=== PATIENT | female | born 1950 | race Caucasian/White ===

== ENCOUNTER → 2017-06-12 | Emergency (ER) | payer OTHER ==
[~2017-06-12] VITALS: Ht 172.7 cm; Wt 63.8 kg
[~2017-06-12] MED LIST: CALC500T19 PO; CLIN1CAP6 PO; FERR325C PO; FISH100020 PO; FISHCAP; GLUCTAB PO; HYDR10SO PO; KETO10 PO; KETOROLAC TROMETHAMINE 60 MG/2 ML (IM) VIAL IM ONE; MAGN500T4 PO; METF500 PO; METF500T4 PO; MULT-207 PO; OMEP20TA PO; TAB-TAB PO; ULTR50TA5 PO; VITA1000 PO; VITA400D PO; ZOFR4TAB3 SL; [UNRECOGNIZED DRUG - CODE] PO; [UNRECOGNIZED DRUG - CODE] TOPICAL
[2017-06-12 18:49] VITALS: BP 194/91; PULSE 73; RESP 16; TEMP 97.9; O2SAT 99
--- NOTE | 2017-06-12 19:42 | PD ---
HPI Chief Complaint: ENT Complaint Time Seen by Provider: 19:08 Travel History International Travel<30 days: No Contact w/Intl Traveler<30days: No Traveled to known affect area: No History of Present Illness HPI 66-year-old female presents emergency department for evaluation of left lacrimal duct pain that radiates over the left cheek to the left ear. Symptom onset 8 hours. The pain is reproducible by pressing the lacrimal duct. Pain is described as sharp. No alleviating factors. Symptoms severity moderate. She denies headache, visual changes, nasal congestion, dental pain. PFSH Past Medical History Cancer: No Cardiovascular Problems: No Diabetes: Yes Patient Takes Glucophage: Yes Diminished Hearing: No Glaucoma: No Hepatitis: No Hiatal Hernia: No Hypertension: No Immune Disorder: No Neurologic: Yes (NEUROPATHY) Psychiatric: No Respiratory: No Thyroid Disease: No Tetanus Vaccination: < 5 Years Influenza Vaccination: No ?: Not Menopausal: Yes Past Surgical History Abdominal Surgery: No AICD: No Cardiac Surgery: No Endocrine Surgery: No Genitourinary Surgery: No Joint Replacement: No Oral Surgery: Yes (tonsils) Pacemaker: No Thoracic Surgery: No Other Surgery: Yes Social History Alcohol Use: Yes (2-3 drinks a week on occ) Tobacco Use: No Substance Use: No Allergies-Medications (Allergen,Severity, Reaction): Coded Allergies: azithromycin (Unverified Allergy, Severe, vomiting and diarrhea, 06/12/17) nortriptyline (Verified Allergy, Severe, heart racing, 06/12/17) penicillin G (Unverified Allergy, Severe, can't remember, 06/12/17) propoxyphene (Unverified Allergy, Severe, vomiting and diarrhea, 06/12/17) gabapentin (Unverified Allergy, Unknown, Tachycardia, 06/12/17) Reported Meds & Prescriptions Reported Meds & Active Scripts Active Ultram (Tramadol HCl) 50 Mg Tab 50 Mg PO Q6H PRN Clindamycin (Clindamycin HCl) 300 Mg Cap 300 Mg PO Q6H 10 Days Reported Retin-A Topical 0.025% (Tretinoin) 0.025 % Cream 1 Applic TOPICAL HS Vitamin D-1000 (Cholecalciferol) 1,000 Unit Tab 2,000 Units PO BID [[id number]] 1 Tab PO BID One Daily (Multiple Vitamin) 1 Tab 1 Tab PO DAILY Omeprazole 20 Mg Tab 20 Mg PO DAILY Iron (Ferrous Sulfate) 325 Mg Cap 325 Mg PO DAILY Fish Oil 1000 mg (Wanda-3 Fatty Acids) 300 Mg-1,000 Mg Cap 1,000 Mg PO DAILY Metformin ER (Metformin HCl) 500 Mg Hudson 750 Mg PO BID With evening meal Review of Systems Except as stated in HPI: all other systems reviewed are Neg General / Constitutional: No: Fever Eyes: No: Visual changes HENT: No: Headaches Cardiovascular: No: Chest Pain or Discomfort Respiratory: No: Shortness of Breath Gastrointestinal: No: Abdominal Pain Genitourinary: No: Dysuria Physical Exam Narrative GENERAL: Alert, well-appearing female in no acute distress. SKIN: Focused skin assessment warm/dry. No facial rash HEAD: Atraumatic. Normocephalic. EYES: Pupils equal and round. No scleral icterus. No injection or drainage. Tenderness to the left lacrimal duct with mild erythema that extends from the inner eye to the lower eyelid. EOMs intact. No fluorescein dye uptake. No dendritic pattern. ENT: No nasal bleeding or discharge. Mucous membranes pink and moist. NECK: Trachea midline. No JVD. No meningismus CARDIOVASCULAR: Regular rate and rhythm. No murmur appreciated. RESPIRATORY: No accessory muscle use. Clear to auscultation. Breath sounds equal bilaterally. GASTROINTESTINAL: Abdomen soft, non-tender, nondistended. Hepatic and splenic margins not palpable. MUSCULOSKELETAL: No obvious deformities. No clubbing. No cyanosis. No edema. NEUROLOGICAL: Awake and alert. No obvious cranial nerve deficits. Motor grossly within normal limits. Normal speech. PSYCHIATRIC: Appropriate mood and affect; insight and judgment normal. Data Data Last Documented VS Vital Signs Date Time Temp Pulse Resp B/P (MAP) Pulse Ox O2 Delivery O2 Flow Rate FiO2 06/12/17 18:49 97.9 73 16 194/91 (125) 99 Orders Orders Ketorolac Inj (Toradol Inj) (06/12/17 19:30) MDM Medical Decision Making Medical Screen Exam Complete: Yes Emergency Medical Condition: Yes Differential Diagnosis Trigeminal neuralgia, herpes zoster, blocked/obstructed tear duct, periorbital cellulitis Narrative Course 66-year-old female presents emergency department for evaluation of left lacrimal duct pain that radiates over the left cheek to the left ear. Symptom onset 8 hours. The pain is reproducible by pressing the lacrimal duct. On exam patient has mild erythema and swelling over the left lacrimal duct and left maxillary sinus. Rendon lamp exam of the left eye reveal no fluorescein dye uptake. The eyes not injected. No dendritic lesion. EOMs intact. Discussed the possibility that this was trigeminal neuralgia but given the patient's pain with mild swelling and erythema at the lacrimal duct the patient will be treated for lacrimal duct infection. Due to patient's ophthalmology showed put on clindamycin and pain medication instructed to follow-up with her PCP/ophthalmology on Thursday. Patient verbalizes understanding and agrees to plan. Diagnosis Primary Impression: Lacrimal duct infection Qualified Codes: H04.302 - Unspecified dacryocystitis of left lacrimal passage Referrals: Programmer Developer Primary Care Physician Additional Instructions: Take the medication as prescribed. Make appointment for follow-up with her doctor on Thursday. If he developed new or worsening symptoms prior return to emergency department. Scripts Tramadol (Ultram) 50 Mg Tab 50 MG PO Q6H Y for PAIN, #12 TAB 0 Refills Prov: Murtaza Reyna MD 06/12/17 Clindamycin (Clindamycin) 300 Mg Cap 300 MG PO Q6H for Infection for 10 Days, CAP 0 Refills Prov: Cindy Lewis 06/12/17 Disposition: 01 DISCHARGE HOME Condition: Stable Cindy Lewis Jun 12, 2017 19:42
== END | disposition home or self-care (01) ==
LOC: PHEFT 18:28
DX: H04.302 Unspecified dacryocystitis of left lacrimal passage (principal); H92.02 Otalgia, left ear; E11.9 Type 2 diabetes mellitus without complications; Z79.84 Long term (current) use of oral hypoglycemic drugs; Z86.69 Personal history of other diseases of the nervous system and sense organs
CPT/HCPCS: 99284; J1885

== ENCOUNTER 2017-06-13 22:39 | Emergency (ER) | payer MEDICARE, OTHER ==
[~2017-06-13] VITALS: Ht 170.2 cm; Wt 63.0 kg
[~2017-06-13 22:39] MED LIST changes: -CALC500T19 PO; -FISHCAP; -GLUCTAB PO; -HYDR10SO PO; -KETO10 PO; -KETOROLAC TROMETHAMINE 60 MG/2 ML (IM) VIAL IM ONE; -MAGN500T4 PO; -METF500 PO; -TAB-TAB PO; -VITA400D PO; -ZOFR4TAB3 SL
[2017-06-13 22:46] VITALS: BP 192/91; PULSE 86; RESP 18; TEMP 98.5; O2SAT 98
--- NOTE | 2017-06-13 23:12 | PD ---
HPI Chief Complaint: Headache Time Seen by Provider: 23:01 Travel History International Travel<30 days: No Contact w/Intl Traveler<30days: No Traveled to known affect area: No History of Present Illness HPI This 66-year-old woman is complaining of pain in the left side of her face and left-sided headache. The pain in her face started yesterday. She came to the hospital for evaluation and was thought to have possible infection of the lacrimal gland. It was noted to be painful and tender to the touch. She was given an injection of Toradol and the Toradol alleviated the pain throughout the night until about 10:00 this afternoon when the pain started again. It is a fairly constant pain on the left side of the nose extending down to the mouth. She says she has been urinating often. She has been nauseated. She says the area of the lacrimal gland was swollen this morning and is actually gone down considerably. She is having a left-sided headache today. She is not generally prone to headaches. She has not noted any numbness or tingling. She has no history of anemia. Recently was found to have some elevation of her liver enzymes and is scheduled for an ultrasound on Thursday. Her primary care physician is Dr. Salty Florence [facility] Past Medical History Cancer: No Cardiovascular Problems: No Diabetes: Yes Diminished Hearing: No Glaucoma: No Hepatitis: No Hiatal Hernia: No Hypertension: No Immune Disorder: No Neurologic: Yes (NEUROPATHY) Psychiatric: No Respiratory: No Thyroid Disease: No ?: Not Menopausal: Yes Past Surgical History Abdominal Surgery: No AICD: No Cardiac Surgery: No Endocrine Surgery: No Genitourinary Surgery: No Joint Replacement: No Oral Surgery: Yes (tonsils) Pacemaker: No Thoracic Surgery: No Other Surgery: Yes Social History Alcohol Use: Yes (2-3 drinks a week on occ) Tobacco Use: No Substance Use: No Allergies-Medications (Allergen,Severity, Reaction): Coded Allergies: azithromycin (Unverified Allergy, Severe, vomiting and diarrhea, 06/12/17) nortriptyline (Verified Allergy, Severe, heart racing, 06/12/17) penicillin G (Unverified Allergy, Severe, can't remember, 06/12/17) propoxyphene (Unverified Allergy, Severe, vomiting and diarrhea, 06/12/17) gabapentin (Unverified Allergy, Unknown, Tachycardia, 06/12/17) Reported Meds & Prescriptions Reported Meds & Active Scripts Active Ultram (Tramadol HCl) 50 Mg Tab 50 Mg PO Q6H PRN Clindamycin (Clindamycin HCl) 300 Mg Cap 300 Mg PO Q6H 10 Days Reported Retin-A Topical 0.025% (Tretinoin) 0.025 % Cream 1 Applic TOPICAL HS Vitamin D-1000 (Cholecalciferol) 1,000 Unit Tab 2,000 Units PO BID [[id number]] 1 Tab PO BID One Daily (Multiple Vitamin) 1 Tab 1 Tab PO DAILY Omeprazole 20 Mg Tab 20 Mg PO DAILY Iron (Ferrous Sulfate) 325 Mg Cap 325 Mg PO DAILY Fish Oil 1000 mg (Marydel-3 Fatty Acids) 300 Mg-1,000 Mg Cap 1,000 Mg PO DAILY Metformin ER (Metformin HCl) 500 Mg Hudson 750 Mg PO BID With evening meal Review of Systems General / Constitutional: No: Fever, Chills Eyes: Positive: Pain, Other (swelling of the lacrimal duct), No: Diploplia, Blurred Vision, Visual changes HENT: Positive: Headaches, No: Vertigo Cardiovascular: No: Chest Pain or Discomfort, Palpitations Respiratory: No: Cough Gastrointestinal: Positive: Nausea Genitourinary: Positive: Frequency, No: Dysuria Skin: No Rash, No Itching Neurologic: No: Weakness, Dizziness Hematologic/Lymphatic: No: Easy Bruising Physical Exam Narrative GENERAL: Well-appearing female who is tenderness at the medial aspect of the left eye. Extraocular movements are full SKIN: Focused skin assessment warm/dry. HEAD: Atraumatic. Normocephalic. EYES: Pupils equal and round. No scleral icterus. No injection or drainage. ENT: No nasal bleeding or discharge. Mucous membranes pink and moist. NECK: Trachea midline. No JVD. CARDIOVASCULAR: Regular rate and rhythm. No murmur appreciated. RESPIRATORY: No accessory muscle use. Clear to auscultation. Breath sounds equal bilaterally. GASTROINTESTINAL: Abdomen soft, non-tender, nondistended. Hepatic and splenic margins not palpable. MUSCULOSKELETAL: No obvious deformities. No clubbing. No cyanosis. No edema. NEUROLOGICAL: Awake and alert. No obvious cranial nerve deficits. Motor grossly within normal limits. Normal speech. PSYCHIATRIC: Appropriate mood and affect; insight and judgment normal. Data Data Last Documented VS Vital Signs Date Time Temp Pulse Resp B/P (MAP) Pulse Ox O2 Delivery O2 Flow Rate FiO2 06/13/17 23:38 88 16 172/77 (108) 99 Room Air 06/13/17 22:46 98.5 Orders Orders Complete Blood Count With Diff (06/13/17 23:01) Comprehensive Metabolic Panel (06/13/17 23:01) Westergren Sedimentation Rate (06/13/17 23:01) Ct Brain W/O Iv Contrast(Rout) (06/13/17 23:01) Sodium Chlor 0.9% 1000 Ml Inj (Ns 1000 M (06/13/17 23:15) Ondansetron Inj (Zofran Inj) (06/13/17 23:15) Ketorolac Inj (Toradol Inj) (06/13/17 23:15) Labs Laboratory Tests Test 06/13/17 23:15 White Blood Count 11.3 TH/MM3 Red Blood Count 4.80 MIL/MM3 Hemoglobin 13.9 GM/DL Hematocrit 43.0 % Mean Corpuscular Volume 89.7 FL Mean Corpuscular Hemoglobin 29.1 PG Mean Corpuscular Hemoglobin Concent 32.5 % Red Cell Distribution Width 13.4 % Platelet Count 303 TH/MM3 Mean Platelet Volume 8.6 FL Neutrophils (%) (Auto) 81.4 % Lymphocytes (%) (Auto) 12.6 % Monocytes (%) (Auto) 4.3 % Eosinophils (%) (Auto) 1.1 % Basophils (%) (Auto) 0.6 % Neutrophils # (Auto) 9.1 TH/MM3 Lymphocytes # (Auto) 1.4 TH/MM3 Monocytes # (Auto) 0.5 TH/MM3 Eosinophils # (Auto) 0.1 TH/MM3 Basophils # (Auto) 0.1 TH/MM3 CBC Comment DIFF FINAL Differential Comment Erythrocyte Sedimentation Rate 5 mm/hr Blood Urea Nitrogen 23 MG/DL Creatinine 0.62 MG/DL Random Glucose 186 MG/DL Total Protein 7.8 GM/DL Albumin 4.1 GM/DL Calcium Level 9.5 MG/DL Alkaline Phosphatase 90 U/L Aspartate Amino Transf (AST/SGOT) 25 U/L Alanine Aminotransferase (ALT/SGPT) 36 U/L Total Bilirubin 0.7 MG/DL Sodium Level 135 MEQ/L Potassium Level 3.7 MEQ/L Chloride Level 101 MEQ/L Carbon Dioxide Level 23.7 MEQ/L Anion Gap 10 MEQ/L Estimat Glomerular Filtration Rate 96 ML/MIN [facility] Medical Decision Making Medical Screen Exam Complete: Yes Emergency Medical Condition: Yes Medical Record Reviewed: Yes Differential Diagnosis Differential includes lacrimal gland infection, possible adverse medication reaction to Ultram, headache Narrative Course CT scan of the brain is negative. White count is 11,000. Sedimentation rate is normal. I suspect the nausea may be related to Ultram. I recommend that she take Toradol instead for pain and I will prescribe some Zofran Diagnosis Primary Impression: Lacrimal duct infection Qualified Codes: H04.302 - Unspecified dacryocystitis of left lacrimal passage Scripts Ondansetron Odt (Zofran Odt) 4 Mg Tab 4 MG SL Q6HR Y for Nausea/Vomiting, #10 TAB 0 Refills Prov: Murtaza Reyna MD 06/14/17 Ketorolac (Ketorolac) 10 Mg Tab 10 MG PO Q6HR Y for PAIN for 20 Days, TAB 0 Refills Prov: Murtaza Reyna MD 06/14/17 Disposition: 01 DISCHARGE HOME Condition: Stable Murtaza Reyna MD Jun 13, 2017 23:12
[2017-06-13] MEDS ORDERED: KETOROLAC TROMETHAMINE 30 MG/ML (IVP) VIAL IV PUSH ONE (23:15)
[2017-06-13] MEDS ORDERED: ONDANSETRON HCL 4 MG/2 ML VIAL IV PUSH ONE (23:15)
[2017-06-13] MEDS ORDERED: SODIUM CHLOR 0.9% 1000 ML INJ 1,000 ML IV SCH (23:15)
[2017-06-13 23:28] LABS: AUTOMATED NEUTROPHIL # 9.1 TH/MM3 (1.8-7.7); BASOPHIL # 0.1 TH/MM3 (0-0.2); BASOPHIL % 0.6 % (0.0-2.0); EOSINOPHIL # 0.1 TH/MM3 (0-0.4); EOSINOPHIL % 1.1 % (0.0-4.0); LYMPH % 12.6 % (9.0-44.0); LYMPHOCYTE # 1.4 TH/MM3 (1.0-4.8); MEAN CELL VOLUME 89.7 FL (80.0-100.0); MEAN CORPUSCULAR HEMOGLOBIN 29.1 PG (27.0-34.0); MEAN CORPUSCULAR HGB CONC 32.5 % (32.0-36.0); MONO % 4.3 % (0.0-8.0); NEUT % 81.4 % (16.0-70.0); PLATELET COUNT 303 TH/MM3 (150-450); RED CELL DISTRIBUTION WIDTH 13.4 % (11.6-17.2); WHITE BLOOD COUNT 11.3 TH/MM3 (4.0-11.0)
[2017-06-13 23:29] LABS: HEMO FLAGS DIFF FINAL
[2017-06-13 23:36] LABS: CHLORIDE 101 MEQ/L (98-107); POTASSIUM 3.7 MEQ/L (3.5-5.1); SODIUM (NA) 135 MEQ/L (136-145)
[2017-06-13 23:38] VITALS: BP 172/77; PULSE 88; RESP 16; O2SAT 99
[2017-06-13 23:40] LABS: ANION GAP 10 MEQ/L (5-15); BICARBONATE 23.7 MEQ/L (21.0-32.0); BLOOD UREA NITROGEN 23 MG/DL (7-18)
[2017-06-13 23:43] LABS: ALT (GPT) 36 U/L (10-53); AST (GOT) 25 U/L (15-37); GLOMERULAR FILTRATION RATE 96 ML/MIN (>89)
[2017-06-13 23:45] LABS: TOTAL BILIRUBIN ADULT 0.7 MG/DL (0.2-1.0)
[2017-06-13 23:46] LABS: ALKALINE PHOSPHATASE 90 U/L (45-117)
--- NOTE | 2017-06-13 23:53 | RADRPT ---
EXAM DATE/TIME: 06/13/2017 23:26 [place] COMPARISON: No previous studies available for comparison. INDICATIONS : Headache and left sided facial pain with nausea RADIATION DOSE: 58.01 CTDIvol (mGy) MEDICAL HISTORY : Diabetes mellitus type 2. SURGICAL HISTORY : Tonsillectomy. ENCOUNTER: Initial ACUITY: 1 day PAIN SCALE: 7/10 LOCATION: Left cranial behind eye and forehead TECHNIQUE: Multiple contiguous axial images were obtained of the head. Using automated exposure control and adj ustment of the mA and/or kV according to patient size, radiation dose was kept as low as reasonably a chievable to obtain optimal diagnostic quality images. DICOM format image data is available electro nically for review and comparison. FINDINGS: CEREBRUM: The ventricles are normal for age. No evidence of midline shift, mass lesion, hemorrhage or acute in farction. No extra-axial fluid collections are seen. POSTERIOR FOSSA: The cerebellum and brainstem are intact. The 4th ventricle is midline. The cerebellopontine angle i s unremarkable. EXTRACRANIAL: The visualized portion of the orbits is intact. SKULL: The calvaria is intact. No evidence of skull fracture. CONCLUSION: 1. No acute findings. Reji Rucker MD on June 13, 2017 at 23:47 Board Certified Radiologist. This report was verified electronically.
[2017-06-14] MEDS ORDERED: ZOFR4TAB3 SL (00:02)
[2017-06-14] MEDS ORDERED: KETO10 PO (00:02)
[2017-06-14 00:32] VITALS: BP 165/62
== END 2017-06-14 00:36 | disposition home or self-care (01) ==
LOC: PHED 22:39
DX: H04.302 Unspecified dacryocystitis of left lacrimal passage (principal); R35.0 Frequency of micturition; R11.0 Nausea; E11.9 Type 2 diabetes mellitus without complications; Z79.84 Long term (current) use of oral hypoglycemic drugs; Z86.69 Personal history of other diseases of the nervous system and sense organs
CPT/HCPCS: 70450; 80053; 85025; 85652; 96361; 96374; 96375; 99285; J1885; J2405; J7030

== ENCOUNTER 2018-08-05 05:37 | Inpatient (IN) ==
[2018-08-05] MEDS ORDERED: Chlorhexidine Gluconate 2% 1 Pack (2 Cloths) TOPICAL ONE (06:49)
[2018-08-05] MEDS ORDERED: Metoprolol Tartrate 25 MG Tablet PO ONE (06:49)
[2018-08-05] MEDS ORDERED: Bupivacaine/Epinephrine 0.5% Inj 50 ML Vial ONE (06:54)
[2018-08-05] MEDS ORDERED: Thrombin Topical Soln 5,000 UNIT Vial TOPICAL ONE (06:56)
[2018-08-05] MEDS ORDERED: Gelatin Size 100 Topical Foam ONE (06:56)
[2018-08-05] MEDS ORDERED: Vancomycin Inj 1,000 MG in Sodium Chlor 0.9% Inj 250 ML IV.SIG SCH (07:00)
[2018-08-05] MEDS ORDERED: Sodium Chlor 0.9% Inj 500 ML IV.SIG SCH (07:00)
[2018-08-05] MEDS: Sod Chloride 0.9% Inj 1,000 ML IV.SIG SCH (07:15)
[2018-08-05] MEDS ORDERED: Neostigmine Inj 5 MG/5 ML Syringe IV.PUSH ONE (08:35)
[2018-08-05] MEDS ORDERED: Lidocaine PF 1% Inj 5 ML Syringe OTHER ONE (08:35)
[2018-08-05] MEDS ORDERED: Glycopyrrolate Inj 1 MG/5 ML Syringe IV.PUSH ONE (08:35)
[2018-08-05] MEDS ORDERED: Phenylephrine/NS 1000 MCG/10ML Syringe IV.PUSH ONE (08:35)
[2018-08-05] MEDS ORDERED: Sod Chloride 0.9% Inj 1,000 ML IV.CONT ONE (08:35)
[2018-08-05] MEDS ORDERED: Dextrose 50% in Water 50 ML Vial IV.PUSH PRN (12:07)
[2018-08-05] MEDS ORDERED: Aluminum/Magnesium/Simethacone Susp 30 ML UDC PO PRN (12:08)
[2018-08-05] MEDS ORDERED: Potassium Chlor 20 mEq Premix 20 MEQ/100 ML PIGGYBACK IV.SIG PRN (12:08)
[2018-08-05] MEDS ORDERED: Magnesium Sulfate Inj 2 GM in Sodium Chlor 0.9% Inj 96 ML IV.SIG PRN (12:08)
[2018-08-05] MEDS ORDERED: Calcium Gluconate Inj 1 GM in Sodium Chlor 0.9% Inj 100 ML IV.SIG PRN (12:08)
[2018-08-05] MEDS ORDERED: Menthol 5.8 MG Lozenge BUCCAL PRN (12:08)
[2018-08-05] MEDS ORDERED: Acetaminophen 325 MG Tablet PO PRN (12:08)
[2018-08-05] MEDS ORDERED: Bisacodyl 10 MG Supp RECTAL PRN (12:08)
--- NOTE | 2018-08-05 12:17 | P.OP ---
- Preoperative Diagnosis (1) Chronic low back pain with bilateral sciatica (2) Lumbar stenosis with neurogenic claudication (3) Lumbar degenerative disc disease (4) Lumbar facet arthropathy (5) Spondylolisthesis, lumbar region Date of procedure: 08/05/18 Procedure: Lumbar L2-3 transforaminal interbody fusion; L2 and L3 decompressive laminectomy ; L2-3 pedicle screw fixation; L2-3 interbody cage placement; microsurgical technique Anesthesia: GETA Surgeon: Shamar Grant MD Typewriter Tester: Tessy Trujillo Estimated blood loss (mL): 50 Operation and Findings: The [id number] details of the procedure, indications, alternatives, risks and potential complications were fully discussed with the patient. The patient fully understood. All the questions were answered. No guarantees were given. The patient voiced requesting the procedure and provided informed consents. The patient was offered the alternative of delaying the procedure and continuing with nonsurgical management. Prior to the procedure, the surgical incision was marked in the preoperative surgical holding room, and the procedure, risks, and potential complications revisited with the patient. Placement of electrodes for intraoperative neurophysiological monitoring was completed. The patient was taken to the operative room, and following induction of general anesthesia, endotracheal intubation was performed. A Kessler catheter, bilateral REBEKAH hose and sequential compression devices were placed and kept throughout the procedure. The patient was positioned prone, over a Rajeev table over a Kraig frame. All pressure in the preoperative surgical holding room points were carefully padded. The eyes were tapped shut after ointment was applied by the anesthesiologist to prevent corneal abrasion. A Carin hugger was placed over the exposed lower body to maintain control of the core body temperature. The lumbar region was prepped and draped in the usual sterile fashion. Once the patient was positioned, a localizing cross-table lateral x-ray was performed with a C-arm. A left paramedian incision was outlined on the skin approximately 3cm from the midline. The skin incision made with a #10 blade. Small bleeders were controlled with the cautery. The dissection was then carried out into deeper planes and through the thoracolumbar fascia with a Bovie. The intermuscular septum was identified and the mucles were blunted dissected along the septum. The facets and transverse process at the left L2-3 levels were exposed and the proper anatomical landmarks were identified. A microsurgical self-retaining retractor was placed on the incision, and a localizing lateralizing cross-table x-ray was performed. Intraoperative microscope magnification used for further dissection. There was significant facet and ligamentum flavum hypertrophy noted. The left L2-3 facet was resected with a drill bit along with the lamina and there was severe foraminal and lateral recess/spinal stenosis from hypertrophied ligamentum flavum and facet which was decompressed. There was disc height collapse from the degeneration along with degenerative spondylolisthesis and disc protrusion also leading to the foraminal stenosis. Epidural hemostasis was achieved with bipolar cautery and Gelfoam with thrombin. Subsequently entered into the disc space at the L2-3 level with a #15 blade and nestor were used for discectomy. I then placed PEEK cage packed with local autograft bone and more local autograft bone was packed adjacent to the cage in interspace for added interbody fusion. With placement of the cage, I was able to distract the interspace and opened up the foramen further bilaterally. Subsequently in order to facilitate the fusion and provide stabilization, pedicle screw fixation was undertaken using [place] spine screws on entry point at the left L2 and L3 levels at the junction of the transverse process and facet through the pedicles into the body. Subsequently using AP and lateral fluoroscopy tap and screw placement. The screws were then connected with a yanet and locked in place with caps. The construct appeared very secure at this point. The area was then copiously irrigated with Vancomycin solution and powder. The retractors were removed and the bipolar cautery used for hemostasis. The muscle fascia was then approximated using 2-0 Vicryl interrupted stitches and then 3-0 Vicryl subcuticular stitches also placed in interrupted fashion. The final skin closure was completed with Mastisol and Steri-Strips. A sterile dressing was then applied. The patient then turned in supine position, extubated and taken to recovery room. There were no intraoperative complications. All sponge and needle counts were correct at the end of procedure. Estimated blood loss about 50 ml.
--- NOTE | 2018-08-05 12:19 | XR ---
EXAM DATE: 08/05/2018 12:09 PM EDT AGE/SEX: 68 years / Female INDICATIONS: Post-op L2-L3 posterior lumbar fusion. CLINICAL DATA: This is the patient's initial encounter. Patient reports that signs and symptoms have been present for 1 day and indicates a pain score of Nonresponsive. MEDICAL/SURGICAL HISTORY: Non-responsive. Non-responsive. COMPARISON: [facility], MR LUMBAR SPINE W/O CONTRAST, 04/15/2018. . FINDINGS: Intraoperative OEC spot images of the lumbar spine targeted to the L2-3 level show unilateral, left-s ided transpedicular fixation with intervertebral disc prostheses. On the prior MRI, severe spinal david nosis was seen at this level due to diffuse disc bulge, marginal spurring and posterior element hyper trophy. CONCLUSION: Left-sided unilateral transpedicular fixation at L2-3 with intervertebral disc prostheses. Electronically signed by: Jose Carmona MD 08/05/2018 12:17 PM EDT
[2018-08-05] MEDS ORDERED: fentaNYL Citrate Inj 100 MCG/2 ML Ampul ONE ×2 (12:22)
[2018-08-05] MEDS: Morphine Inj 4 MG/ML Vial IV.PUSH PRN ×2 (15:32→20:09)
[2018-08-05 16:34] LABS: Baso % (Auto) 0.3 % (0.0-2.0); Eos % (Auto) 0.1 % (0.0-4.0); Hematocrit 36.8 % (35.0-46.0); Hemoglobin 13.2 gm/dL (11.6-15.3); Lymph # (Auto) 0.6 th/mm3 (1.0-4.8); Lymph % (Auto) 6.9 % (9.0-44.0); Mean Corpuscular HGB Conc 35.9 % (32.0-36.0); Mean Corpuscular Hemoglobin 32.6 pg (27.0-34.0); Mean Corpuscular Volume 90.7 fL (80.0-100.0); Mean Platelet Volume 9.2 fL (7.0-11.0); Mono # (Auto) 0.3 th/mm3 (0.0-0.9); Mono % (Auto) 2.7 % (0.0-8.0); Neut # (Auto) 8.3 th/mm3 (1.8-7.7); Platelet Count 208 th/mm3 (150-450); Red Blood Count 4.06 mil/mm3 (4.00-5.30); Red Cell Distribution Width 12.8 % (11.6-17.2); White Blood Count 9.2 th/mm3 (4.0-11.0)
[2018-08-05 16:52] LABS: Anion Gap 11 meq/L (5-15); Blood Urea Nitrogen 21 mg/dL (7-18); Calcium 8.6 mg/dL (8.5-10.1); Carbon Dioxide 23.8 meq/L (21.0-32.0); Chloride 104 meq/L (98-107); Glomerular Filtration Rate Greater Than 89 mL/min (>89); Glucose,Random 146 mg/dL (74-106); Magnesium 1.9 mg/dL (1.5-2.5); Potassium 3.9 meq/L (3.5-5.1); Sodium 139 meq/L (136-145)
[2018-08-05] MEDS: Insulin NovoLOG Aspart Correctional Sugar Inj SQ SCH ×2 (17:31→20:08)
[2018-08-05] MEDS: Senna/Docusate Sodium 8.6/50 MG Tablet PO SCH (20:08)
[2018-08-05] MEDS ORDERED: Zolpidem Tartrate 5 MG Tablet PO PRN (21:00)
[2018-08-05] MEDS ORDERED: TURMERIC 600 MG PO SCH (21:00)
[2018-08-05] MEDS: Vancomycin Inj 1,000 MG in Sodium Chlor 0.9% Inj 250 ML IV.SIG SCH (23:41)
[2018-08-06] MEDS: Sod Chloride 0.9% Inj 1,000 ML IV.SIG SCH (06:59)
[2018-08-06] MEDS: Senna/Docusate Sodium 8.6/50 MG Tablet PO SCH ×2 (08:35→20:06)
[2018-08-06] MEDS: Magnesium Oxide 400 MG Tablet PO SCH (08:35)
[2018-08-06] MEDS: Vancomycin Inj 1,000 MG in Sodium Chlor 0.9% Inj 250 ML IV.SIG SCH (08:35)
[2018-08-06] MEDS: Insulin NovoLOG Aspart Correctional Sugar Inj SQ SCH ×4 (08:50→20:07)
--- NOTE | 2018-08-06 11:03 | P.PNNS ---
Subjective Interval history: Pt s/p lumbar L2-3 transforaminal interbody fusion; L2 and L3 decompressive laminectomy; L2-3 pedicle screw fixation; L2-3 interbody cage placement; microsurgical technique on 08/05/18. Pt states pain controlled with current pain medication regimen. No radiculopathy in LEs. Paresthesias improved. <Fantasma Zimmerman - Last Filed: 08/06/18 10:56> Physical Exam Vital signs: Vital Signs 08/05/18 12:11 08/05/18 12:30 08/05/18 12:45 Temperature 98 F Pulse Rate 74 74 76 Respiratory Rate 18 18 18 Blood Pressure 111/53 L 127/84 124/74 Pulse Oximetry 95 95 95 08/05/18 13:00 08/05/18 13:15 08/05/18 13:30 Temperature Pulse Rate 70 70 70 Respiratory Rate 18 18 18 Blood Pressure 126/63 113/59 L 111/56 L Pulse Oximetry 95 95 95 08/05/18 13:45 08/05/18 14:10 08/05/18 15:59 Temperature 98 F 98.5 F Pulse Rate 70 71 74 Respiratory Rate 18 18 18 Blood Pressure 111/56 L 117/58 L 133/64 Pulse Oximetry 95 95 98 08/05/18 19:30 08/06/18 00:00 08/06/18 00:11 Temperature 98.6 F Pulse Rate 73 Respiratory Rate 18 20 18 Blood Pressure 133/61 Pulse Oximetry 98 08/06/18 02:00 08/06/18 04:00 08/06/18 08:00 Temperature 98.6 F 98.7 F Pulse Rate 76 71 Respiratory Rate 18 20 16 Blood Pressure 96/50 L 91/51 L Pulse Oximetry 96 95 Intake & Output 08/05/18 08/06/18 08/06/18 18:59 06:59 18:59 Intake Total 1979 / 1979 490 / 490 250 / 250 Output Total 200 / 200 2300 / 2300 Balance 1780 / 1780 -1810 / -1810 250 / 250 Weight 58 kg 58.2 kg Intake: IV 250 / 250 250 / 250 Vancomycin Inj 1,000 MG In NS 250 / 250 250 / 250 Inj 250 ML @ 250 mls/hr IV.SIG Q12H [facility] Rx#:[id number] Oral 480 / 480 240 / 240 Anesthesia Amount 1500 / 1500 Output: Urine 2300 / 2300 Estimated Blood Loss 50 / 50 Urine Amount (Catheter) 150 / 150 Indwelling Urethral Catheter 150 / 150 Other: Date of Last Bowel Movement 08/05/18 - Constitutional no acute distress - Routine HEENT Exam Head: Present: normocephalic Eye: Present: PERRL, conjunctival icterus - Routine Respiratory Exam Present: CTA bilaterally. Absent: respiratory distress, rhonchi, wheezes - Routine Cardiovascular Exam Present: RRR, S1, S2. Absent: murmur - Routine Abdominal Exam Present: soft - Routine Skin Exam Absent: cyanosis, erythema Comments: RN changed bandage this morning and reportedly clean and dry. - Routine Neurological Exam Present: alert, moving all extremities, normal speech. Absent: sensory deficit , motor deficit - Routine Psychiatric Exam Present: normal affect. Absent: anxious, agitated - Urinary Catheter Management Indwelling Urethral Catheter Cath placed during this visit: no Reason for continuing: Hourly intake/output <Fantasma Zimmerman - Last Filed: 08/06/18 10:56> Vital signs: Vital Signs 08/05/18 12:45 08/05/18 13:00 08/05/18 13:15 Temperature Pulse Rate 76 70 70 Respiratory Rate 18 18 18 Blood Pressure 124/74 126/63 113/59 L Pulse Oximetry 95 95 95 08/05/18 13:30 08/05/18 13:45 08/05/18 14:10 Temperature 98 F Pulse Rate 70 70 71 Respiratory Rate 18 18 18 Blood Pressure 111/56 L 111/56 L 117/58 L Pulse Oximetry 95 95 95 08/05/18 15:59 08/05/18 19:30 08/06/18 00:00 Temperature 98.5 F 98.6 F Pulse Rate 74 73 Respiratory Rate 18 18 20 Blood Pressure 133/64 133/61 Pulse Oximetry 98 98 08/06/18 00:11 08/06/18 02:00 08/06/18 04:00 Temperature 98.6 F Pulse Rate 76 Respiratory Rate 18 18 20 Blood Pressure 96/50 L Pulse Oximetry 96 08/06/18 08:00 08/06/18 12:00 Temperature 98.7 F 98.0 F Pulse Rate 71 76 Respiratory Rate 16 16 Blood Pressure 91/51 L 105/58 L Pulse Oximetry 95 96 Intake & Output 10/08/06/18 08/06/18 18:59 06:59 18:59 Intake Total 1979 / 1979 490 / 490 250 / 250 Output Total 200 / 200 2300 / 2300 Balance 1780 / 1780 -1810 / -1810 250 / 250 Weight 58 kg 58.2 kg Intake: IV 250 / 250 250 / 250 Vancomycin Inj 1,000 MG In NS 250 / 250 250 / 250 Inj 250 ML @ 250 mls/hr IV.SIG Q12H [facility] Rx#:[id number] Oral 480 / 480 240 / 240 Anesthesia Amount 1500 / 1500 Output: Urine 2300 / 2300 Estimated Blood Loss 50 / 50 Urine Amount (Catheter) 150 / 150 Indwelling Urethral Catheter 150 / 150 Other: Date of Last Bowel Movement 08/05/18 - Urinary Catheter Management Indwelling Urethral Catheter Cath placed during this visit: no <Shamar Grant - Last Filed: 08/06/18 12:34> Assessment and Plan - Assessment (1) Chronic low back pain with bilateral sciatica Code(s): M54.41 - Lumbago with sciatica, right side; M54.42 - Lumbago with sciatica, left side; G89.29 - Other chronic pain Status: Chronic (2) Lumbar stenosis with neurogenic claudication Code(s): M48.062 - Spinal stenosis, lumbar region with neurogenic claudication Status: Chronic (3) Lumbar degenerative disc disease Code(s): M51.36 - Other intervertebral disc degeneration, lumbar region Status : Chronic (4) Lumbar facet arthropathy Code(s): M47.816 - Spondylosis without myelopathy or radiculopathy, lumbar region Status: Chronic (5) Spondylolisthesis, lumbar region Code(s): M43.16 - Spondylolisthesis, lumbar region Status: Chronic - Plan A: 68 y/o FM s/p Lumbar L2-3 transforaminal interbody fusion; L2 and L3 decompressive laminectomy; L2-3 pedicle screw fixation; L2-3 interbody cage placement; microsurgical technique P: Continue with pain control. PT to advance activity. Follow up as directed on preop instruction sheet. <Fantasma Zimmerman - Last Filed: 08/06/18 10:56> - Attending Attestation The exam, history, and the medical decision-making described in the above note were completed with the assistance of the mid-level provider. I reviewed and agree with the findings presented. I attest that I had a [id number] encounter with the patient on the same day, and personally performed and documented my assessment and findings in the medical record. <Shamar Grant - Last Filed: 08/06/18 12:34>
[2018-08-07] MEDS: Insulin NovoLOG Aspart Correctional Sugar Inj SQ SCH ×4 (08:11→20:50)
[2018-08-07] MEDS: Senna/Docusate Sodium 8.6/50 MG Tablet PO SCH ×2 (08:14→20:49)
[2018-08-07] MEDS: Magnesium Oxide 400 MG Tablet PO SCH (08:14)
--- NOTE | 2018-08-07 13:10 | P.PNNS ---
Subjective Interval history: Painful when she gets up, but ok in bed. Nauseous due to pain and narcotics NO BM yet Physical Exam Vital signs: Vital Signs 08/06/18 16:00 08/06/18 20:00 08/06/18 23:16 Temperature 98.1 F 98.8 F Pulse Rate 65 72 Respiratory Rate 18 18 18 Blood Pressure 118/57 L 134/62 Pulse Oximetry 94 L 95 08/07/18 00:00 08/07/18 08:00 Temperature 99.6 F 98.3 F Pulse Rate 83 75 Respiratory Rate 17 16 Blood Pressure 107/55 L 110/58 L Pulse Oximetry 96 95 Intake & Output 08/06/18 08/07/18 08/07/18 18:59 06:59 18:59 Intake Total 730 / 730 1000 / 1000 Balance 730 / 730 1000 / 1000 Intake: IV 250 / 250 1000 / 1000 Vancomycin Inj 1,000 MG In NS 250 / 250 Inj 250 ML @ 250 mls/hr IV.SIG Q12H [facility] Rx#:[id number] Oral 480 / 480 Other: # Voids 1 5 Date of Last Bowel Movement 08/05/18 08/05/18 08/05/18 Narrative: A&O x 3 CN II - XII intact Motor 5/5 UE/LE - Urinary Catheter Management Indwelling Urethral Catheter Cath placed during this visit: no Reason for continuing: Hourly intake/output Assessment and Plan - Plan A: 68 y/o FM s/p Lumbar L2-3 transforaminal interbody fusion; L2 and L3 decompressive laminectomy; L2-3 pedicle screw fixation; L2-3 interbody cage placement; microsurgical technique, pod#2 P: Continue with pain control and attempt at BM Try flexeril today Mobilize with PT Will need a walker and home health care on d/c
[2018-08-08] MEDS: Insulin NovoLOG Aspart Correctional Sugar Inj SQ SCH ×4 (08:42→21:13)
[2018-08-08] MEDS: Senna/Docusate Sodium 8.6/50 MG Tablet PO SCH ×2 (08:44→21:08)
[2018-08-08] MEDS: Magnesium Oxide 400 MG Tablet PO SCH (08:44)
--- NOTE | 2018-08-08 12:51 | P.DCO ---
- Physical Therapy Order: Evaluate and treat, Improve ambulation, Strength and gait training - Home Health Nursing Order: Wound care and dressing changes - Case Management Consult Yes - Certification I have seen patient Kim Flores on 08/08/18. My clinical findings support the need for the requested home health care services because: Limited ability to care for self I certify that my clinical findings support that this patient is homebound because: Unsteady gait/balance
--- NOTE | 2018-08-08 14:43 | P.PNNS ---
Subjective Interval history: Doing better with flexeril. Still no BM, will try suppository today -- this distention is making her uncomfortable. Physical Exam Vital signs: Vital Signs 08/07/18 16:00 08/07/18 20:00 08/08/18 00:00 Temperature 98.6 F 98.7 F 98.7 F Pulse Rate 69 75 73 Respiratory Rate 16 17 17 Blood Pressure 127/63 143/63 H 112/59 L Pulse Oximetry 96 98 96 08/08/18 04:00 08/08/18 08:00 08/08/18 12:00 Temperature 98.0 F 98.1 F 97.9 F Pulse Rate 74 71 81 Respiratory Rate 17 16 16 Blood Pressure 112/58 L 112/57 L 113/60 Pulse Oximetry 96 94 L 96 Intake & Output 08/07/18 08/08/18 08/08/18 18:59 06:59 18:59 Intake Total 1979 / 1979 Output Total 2350 / 2350 Balance -370 / -370 Weight 65.4 kg Intake: Oral 480 / 480 Anesthesia Amount 1500 / 1500 Output: Urine 2300 / 2300 Estimated Blood Loss 50 / 50 Other: # Voids 5 4 Date of Last Bowel Movement 08/05/18 08/05/18 08/05/18 Narrative: A&O x 3 CN II - XII intact Motor 5/5 UE/LE Incision c/d/i - Urinary Catheter Management Indwelling Urethral Catheter Cath placed during this visit: no Reason for continuing: Hourly intake/output Assessment and Plan - Plan A: 68 y/o FM s/p Lumbar L2-3 transforaminal interbody fusion; L2 and L3 decompressive laminectomy; L2-3 pedicle screw fixation; L2-3 interbody cage placement; microsurgical technique, pod#2 P: Continue with pain control and attempt at BM Try flexeril today Mobilize with PT Will need a walker and home health care on d/c, likely tomorrow
[2018-08-09] MEDS: Insulin NovoLOG Aspart Correctional Sugar Inj SQ SCH ×4 (08:00→23:59)
[2018-08-09] MEDS: Senna/Docusate Sodium 8.6/50 MG Tablet PO SCH ×2 (08:54→23:58)
[2018-08-09] MEDS: Magnesium Oxide 400 MG Tablet PO SCH (09:00)
--- NOTE | 2018-08-09 11:38 | P.PNNS ---
Subjective Interval history: Pt awake and alert. Mild incisional pain states controlled with one pain pill and trying to not use as frequent as ordered. She denies any radiculopathy in LEs. She has numbness in feet but tingling has resolved. Pt ambulating. She is constipated and has taken multiple oral laxatives. She has had one suppository. <Fantasma Zimmerman - Last Filed: 08/09/18 18:18> Physical Exam Vital signs: Vital Signs 08/08/18 12:00 08/08/18 16:00 08/08/18 20:00 Temperature 97.9 F 97.7 F 98.2 F Pulse Rate 81 69 79 Respiratory Rate 16 16 18 Blood Pressure 113/60 131/63 114/59 L Pulse Oximetry 96 98 96 08/09/18 00:00 08/09/18 04:00 08/09/18 08:00 Temperature 98.7 F 98.4 F 98.4 F Pulse Rate 69 73 72 Respiratory Rate 17 17 18 Blood Pressure 114/55 L 118/56 L 110/58 L Pulse Oximetry 96 96 95 Intake & Output 08/08/18 08/09/18 08/09/18 18:59 06:59 18:59 Intake Total 3460 / 3460 Output Total 2350 / 2350 Balance 1110 / 1110 Intake: Oral 1960 / 1960 Anesthesia Amount 1500 / 1500 Output: Urine 2300 / 2300 Estimated Blood Loss 50 / 50 Other: # Voids 3 5 Date of Last Bowel Movement 08/05/18 08/08/18 08/08/18 - Constitutional no acute distress, thin - Routine HEENT Exam Head: Present: normocephalic Eye: Present: PERRL - Routine Respiratory Exam Present: CTA bilaterally. Absent: respiratory distress, rhonchi, wheezes - Routine Cardiovascular Exam Present: RRR, S1, S2. Absent: murmur - Routine Abdominal Exam Present: distended. Absent: normoactive bowel sounds (diminished.), firm (Not firm but distended.) - Routine Skin Exam Absent: cyanosis, erythema - Routine Neurological Exam Present: alert, oriented X3, moving all extremities, normal speech. Absent: motor deficit - Routine Psychiatric Exam Present: normal affect, cooperative. Absent: anxious, agitated - Urinary Catheter Management Indwelling Urethral Catheter Cath placed during this visit: no Reason for continuing: Hourly intake/output <Fantasma Zimmerman - Last Filed: 08/09/18 18:18> Vital signs: Vital Signs 08/08/18 20:00 08/09/18 00:00 08/09/18 04:00 Temperature 98.2 F 98.7 F 98.4 F Pulse Rate 79 69 73 Respiratory Rate 18 17 17 Blood Pressure 114/59 L 114/55 L 118/56 L Pulse Oximetry 96 96 96 08/09/18 08:00 08/09/18 12:00 08/09/18 16:00 Temperature 98.4 F 97.7 F 98.0 F Pulse Rate 72 81 78 Respiratory Rate 18 17 18 Blood Pressure 110/58 L 122/70 138/87 Pulse Oximetry 95 95 97 Intake & Output 08/08/18 08/09/18 08/09/18 18:59 06:59 18:59 Intake Total 3460 / 3460 Output Total 2350 / 2350 Balance 1110 / 1110 Intake: Oral 1960 / 1960 Anesthesia Amount 1500 / 1500 Output: Urine 2300 / 2300 Estimated Blood Loss 50 / 50 Other: # Voids 3 5 Date of Last Bowel Movement 08/05/18 08/08/18 08/08/18 - Urinary Catheter Management Indwelling Urethral Catheter Cath placed during this visit: no <Shamar Grant - Last Filed: 08/09/18 18:28> Assessment and Plan - Assessment (1) Chronic low back pain with bilateral sciatica Code(s): M54.41 - Lumbago with sciatica, right side; M54.42 - Lumbago with sciatica, left side; G89.29 - Other chronic pain Status: Chronic (2) Lumbar stenosis with neurogenic claudication Code(s): M48.062 - Spinal stenosis, lumbar region with neurogenic claudication Status: Chronic (3) Lumbar degenerative disc disease Code(s): M51.36 - Other intervertebral disc degeneration, lumbar region Status : Chronic (4) Lumbar facet arthropathy Code(s): M47.816 - Spondylosis without myelopathy or radiculopathy, lumbar region Status: Chronic (5) Spondylolisthesis, lumbar region Code(s): M43.16 - Spondylolisthesis, lumbar region Status: Chronic - Plan A: 68 y/o FM s/p Lumbar L2-3 transforaminal interbody fusion; L2 and L3 decompressive laminectomy; L2-3 pedicle screw fixation; L2-3 interbody cage placement; microsurgical technique P: Continue with pain control and attempt at BM Will give pt Fleets enema. Mobilize with PT Will need a walker and home health care on d/c <Fantasma Zimmerman - Last Filed: 08/09/18 18:18> - Attending Attestation The exam, history, and the medical decision-making described in the above note were completed with the assistance of the mid-level provider. I reviewed and agree with the findings presented. I attest that I had a [id number] encounter with the patient on the same day, and personally performed and documented my assessment and findings in the medical record. <Shamar Grant - Last Filed: 08/09/18 18:28>
[2018-08-09] MEDS ORDERED: Sod Phosphate/Sod Biphosphate (Adult) Enema 133 ML Bottle RECTAL ONE (13:00)
[2018-08-09] MEDS ORDERED: Methylnaltrexone Inj 12 MG/0.6 ML Vial SQ ONE (17:11)
[2018-08-09] MEDS ORDERED: PEG 3350/E-Lyte Soln 4000 ML Bottle PO ONE (17:11)
--- NOTE | 2018-08-09 17:28 | P.CONGI ---
History of Present Illness Consult date: 08/09/18 Consult reason: Constipation Chief complaint: PLIF History of Present Illness: This patient is a 68-year-old female who was admitted to [facility] on 08/05/2018 to undergo lumbar L2-3 transforaminal interbody fusion, L2 and L3 decompressive laminectomy, L2-3 pedicle screw fixation, L2-3 interbody cage placement, microsurgical technique. Procedures were done to relieve patient's paresthesias. 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 Patient currently on Gurdon 10 mg tablets 2 tabs p.o. every 4 as needed for pain , Gurdon 10 mg 1 tab p.o. every 4 hours for pain, morphine sulfate 4 mg IV every 4 hours as needed for severe pain. Our service has been consulted to manage patient's probable opioid induced constipation. On consultation patient reports last BM 4 days ago. She states normally her stools are soft and formed and brown without any noted bleeding. She takes a fiber supplement daily in order to have regular bowel movements. Patient states she has had a 2-3-day onset of lower abdominal cramping that she describes as constant. Denies any nausea or vomiting. She states her appetite has been poor since the onset of the lower abdominal cramping and constipation. She reports her last EGD/colonoscopy was done 4 years ago and per her recollection was unremarkable. Denies any known family history of gastrointestinal diseases or disorders. And denies any tobacco use, states EtOH use socially. Patient has had multiple laxatives administered without relief of constipation. Milk of magnesia, Dulcolax suppositories, lactulose, Janine-Colace, and Senokot. <Aminata Ervin - Last Filed: 08/09/18 17:14> Review of Systems All other systems reviewed negative except as stated in HPI <Aminata Ervin - Last Filed: 08/09/18 17:14> PMFSH - History History Provided By: Patient, Significant Other - Medical History Medical History: Medical History (Last Reviewed 08/09/18 @ 08:21 by Roni Gregorio) Left wrist fracture Arthritis Back pain Diabetes Wears glasses - Surgical History Surgical History: Surgical History (Last Reviewed 08/08/18 @ 10:08 by Laureen Guan) Hx of tonsillectomy S/P wrist surgery - Tobacco History Second Hand Smoke Exposure: No Smoking Status: Never smoker - Alcohol History How Often Do You Have a Drink Containing Alcohol: 2 to 4 times a month - Substance Use History Substance History: No History of Abuse - Immunization History Tetanus Immunization: Unsure Hx Influenza Vaccine This Season: No <Aminata Ervin - Last Filed: 08/09/18 17:14> - Medical History Medical History: Medical History (Last Reviewed 08/09/18 @ 08:21 by Roni Gregorio) Left wrist fracture Arthritis Back pain Diabetes Wears glasses - Surgical History Surgical History: Surgical History (Last Reviewed 08/08/18 @ 10:08 by Laureen Guan) Hx of tonsillectomy S/P wrist surgery <Yosvany Escobar - Last Filed: 08/09/18 18:10> Medications and Allergies Active Medications: Active Medications Acetaminophen (Tylenol) 650 mg PO Q4H PRN PRN Reason: TEMPERATURE > 101.5 F Hydrocodone Bitart/Acetaminophen (Gurdon 10/325) 2 tab PO Q4H PRN PRN Reason: PAIN SCALE 6 TO 10 Last Admin: 08/09/18 08:55 Dose: 2 tab Hydrocodone Bitart/Acetaminophen (Gurdon 10/325) 1 tab PO Q4H PRN PRN Reason: Pain Scale 1 To 5 Last Admin: 08/09/18 05:19 Dose: 1 tab Al Hydrox/Mg Hydrox/Simethicone (Mag-Al Plus Susp Liq) 30 ml PO Q6H PRN PRN Reason: DYSPEPSIA Last Admin: 08/08/18 21:08 Dose: 30 ml Al Hydroxide/Mg Hydroxide (Milk Of Magnesia Liq) 30 ml PO Q12H PRN PRN Reason: Mild Constipation Last Admin: 08/07/18 20:48 Dose: 30 ml Albuterol (Albuterol Neb (Prn)) 2.5 mg NEB Q4HR NEB PRN PRN Reason: WHEEZING Bisacodyl (Dulcolax Supp) 10 mg RECTAL DAILY PRN PRN Reason: SEVERE CONSITIPATION Last Admin: 08/09/18 09:02 Dose: 10 mg Clonidine HCl (Catapres) 0.1 mg NG/OG Q6H PRN PRN Reason: SYS BP GREATER THAN 170 MMHG Cyclobenzaprine HCl (Flexeril) 10 mg PO Q8H PRN PRN Reason: MUSCLE SPASM Last Admin: 08/09/18 05:20 Dose: 10 mg Dextrose (D50w Vial) 50 ml IV.PUSH UNSCH PRN PRN Reason: PER HYPOGLYCEMIA PROTOCOL Glucagon (Glucagon Inj) 1 mg OTHER PRN PRN PRN Reason: for Hypoglycemia Protocol Sodium Chloride (Ns Inj) 500 mls @ 30 mls/hr IV.SIG .Q10H [facility] Last Admin: 08/05/18 07:15 Dose: Not Given Calcium Gluconate 1 gm/ Sodium (Chloride) 110 mls @ 110 mls/hr IV.SIG UNSCH PRN PRN Reason: SEE LABEL COMMENTS Magnesium Sulfate 2 gm/ Sodium (Chloride) 100 mls @ 100 mls/hr IV.SIG UNSCH PRN PRN Reason: MAGNESIUM LESS THAN 2 Potassium Chloride (Kcl 20 Meq Premix Inj) 20 meq in 100 mls @ 50 mls/hr IV.SIG UNSCH PRN PRN Reason: POTASSIUM LESS THAN 4 Insulin Aspart (Novolog Insulin Correctional Sugar Inj) 0 unit SQ ACHS [facility]; Protocol Last Admin: 08/08/18 21:13 Dose: Not Given Lactulose (Lactulose Liq) 30 ml PO DAILY PRN PRN Reason: SEVERE CONSITIPATION Last Admin: 08/09/18 05:19 Dose: 30 ml Magnesium Oxide (Mag-Ox) 400 mg PO DAILY [facility] Last Admin: 08/09/18 09:00 Dose: 400 mg Menthol ([place]) 1 lozenge BUCCAL UNSCH PRN PRN Reason: SORE THROAT Methylnaltrexone [place] (Relistor) 12 mg SQ ONCE ONE Stop: 08/09/18 17:12 Morphine Sulfate (Morphine Inj) 4 mg IV.PUSH Q4H PRN PRN Reason: Pain Scale 7 to 10 Last Admin: 08/05/18 20:09 Dose: 4 mg Multivitamins (Theragran) 1 tab PO DAILY [facility] Last Admin: 08/09/18 08:54 Dose: 1 tab Ondansetron HCl (Zofran Inj) 4 mg IV.PUSH Q6H PRN PRN Reason: NAUSEA OR VOMITING Last Admin: 08/08/18 10:43 Dose: 4 mg Ondansetron HCl (Zofran Odt) 8 mg PO Q6H PRN PRN Reason: NAUSEA Last Admin: 08/09/18 05:20 Dose: 8 mg Pantoprazole Sodium (Protonix) 40 mg PO DAILY [facility] Last Admin: 08/09/18 08:54 Dose: 40 mg Polyethylene Glycol/Electrolytes (Colyte Liq) 2,000 ml PO ONCE ONE Stop: 08/09/18 17:12 Promethazine HCl (Phenergan Inj) 25 mg IM Q4H PRN PRN Reason: NAUSEA OR VOMITING Senna/Docusate Sodium (Janine-Colace) 1 tab PO BID [facility] Last Admin: 08/09/18 08:54 Dose: 1 tab Sennosides (Senokot) 17.2 mg PO Q12H PRN PRN Reason: Moderate Constipation Last Admin: 08/09/18 09:00 Dose: 17.2 mg Vitamin D (Vitamin D3) 2,000 unit PO DAILY [facility] Last Admin: 08/09/18 08:54 Dose: 2,000 unit Zolpidem Tartrate (Ambien) 5 mg PO HS PRN PRN Reason: INSOMNIA <ErvinKathleeny - Last Filed: 08/09/18 17:14> Active Medications: Active Medications Acetaminophen (Tylenol) 650 mg PO Q4H PRN PRN Reason: TEMPERATURE > 101.5 F Hydrocodone Bitart/Acetaminophen (Gurdon 10/325) 2 tab PO Q4H PRN PRN Reason: PAIN SCALE 6 TO 10 Last Admin: 08/09/18 08:55 Dose: 2 tab Hydrocodone Bitart/Acetaminophen (Gurdon 10/325) 1 tab PO Q4H PRN PRN Reason: Pain Scale 1 To 5 Last Admin: 08/09/18 05:19 Dose: 1 tab Al Hydrox/Mg Hydrox/Simethicone (Mag-Al Plus Susp Liq) 30 ml PO Q6H PRN PRN Reason: DYSPEPSIA Last Admin: 08/08/18 21:08 Dose: 30 ml Al Hydroxide/Mg Hydroxide (Milk Of Magnesia Liq) 30 ml PO Q12H PRN PRN Reason: Mild Constipation Last Admin: 08/07/18 20:48 Dose: 30 ml Albuterol (Albuterol Neb (Prn)) 2.5 mg NEB Q4HR NEB PRN PRN Reason: WHEEZING Bisacodyl (Dulcolax Supp) 10 mg RECTAL DAILY PRN PRN Reason: SEVERE CONSITIPATION Last Admin: 08/09/18 09:02 Dose: 10 mg Clonidine HCl (Catapres) 0.1 mg NG/OG Q6H PRN PRN Reason: SYS BP GREATER THAN 170 MMHG Cyclobenzaprine HCl (Flexeril) 10 mg PO Q8H PRN PRN Reason: MUSCLE SPASM Last Admin: 08/09/18 05:20 Dose: 10 mg Dextrose (D50w Vial) 50 ml IV.PUSH UNSCH PRN PRN Reason: PER HYPOGLYCEMIA PROTOCOL Glucagon (Glucagon Inj) 1 mg OTHER PRN PRN PRN Reason: for Hypoglycemia Protocol Sodium Chloride (Ns Inj) 500 mls @ 30 mls/hr IV.SIG .Q10H [facility] Last Admin: 08/05/18 07:15 Dose: Not Given Calcium Gluconate 1 gm/ Sodium (Chloride) 110 mls @ 110 mls/hr IV.SIG UNSCH PRN PRN Reason: SEE LABEL COMMENTS Magnesium Sulfate 2 gm/ Sodium (Chloride) 100 mls @ 100 mls/hr IV.SIG UNSCH PRN PRN Reason: MAGNESIUM LESS THAN 2 Potassium Chloride (Kcl 20 Meq Premix Inj) 20 meq in 100 mls @ 50 mls/hr IV.SIG UNSCH PRN PRN Reason: POTASSIUM LESS THAN 4 Insulin Aspart (Novolog Insulin Correctional Sugar Inj) 0 unit SQ ACHS [facility]; Protocol Last Admin: 08/08/18 21:13 Dose: Not Given Lactulose (Lactulose Liq) 30 ml PO DAILY PRN PRN Reason: SEVERE CONSITIPATION Last Admin: 08/09/18 05:19 Dose: 30 ml Magnesium Oxide (Mag-Ox) 400 mg PO DAILY [facility] Last Admin: 08/09/18 09:00 Dose: 400 mg Menthol ([place]) 1 lozenge BUCCAL UNSCH PRN PRN Reason: SORE THROAT Morphine Sulfate (Morphine Inj) 4 mg IV.PUSH Q4H PRN PRN Reason: Pain Scale 7 to 10 Last Admin: 08/05/18 20:09 Dose: 4 mg Multivitamins (Theragran) 1 tab PO DAILY [facility] Last Admin: 08/09/18 08:54 Dose: 1 tab Ondansetron HCl (Zofran Inj) 4 mg IV.PUSH Q6H PRN PRN Reason: NAUSEA OR VOMITING Last Admin: 08/08/18 10:43 Dose: 4 mg Ondansetron HCl (Zofran Odt) 8 mg PO Q6H PRN PRN Reason: NAUSEA Last Admin: 08/09/18 05:20 Dose: 8 mg Pantoprazole Sodium (Protonix) 40 mg PO DAILY [facility] Last Admin: 08/09/18 08:54 Dose: 40 mg Promethazine HCl (Phenergan Inj) 25 mg IM Q4H PRN PRN Reason: NAUSEA OR VOMITING Senna/Docusate Sodium (Janine-Colace) 1 tab PO BID [facility] Last Admin: 08/09/18 08:54 Dose: 1 tab Sennosides (Senokot) 17.2 mg PO Q12H PRN PRN Reason: Moderate Constipation Last Admin: 08/09/18 09:00 Dose: 17.2 mg Vitamin D (Vitamin D3) 2,000 unit PO DAILY [facility] Last Admin: 08/09/18 08:54 Dose: 2,000 unit Zolpidem Tartrate (Ambien) 5 mg PO HS PRN PRN Reason: INSOMNIA <Hemaidan,Ammar - Last Filed: 08/09/18 18:10> Allergies Allergy/AdvReac Type Severity Reaction Status Date / Time azithromycin Allergy Severe vomiting Verified 08/03/18 13:10 and diarrhea gabapentin Allergy Severe Tachycardia Verified 08/03/18 13:10 nortriptyline Allergy Severe heart Verified 08/03/18 13:10 racing penicillin G Allergy Severe can't Verified 08/03/18 13:10 remember propoxyphene Allergy Severe vomiting Verified 08/03/18 13:10 and diarrhea tramadol Allergy Severe Tachycardia Verified 08/03/18 13:10 Home Medications Medication Instructions Recorded Confirmed Type alpha lipoic acid 600 mg PO BID 08/03/18 08/05/18 History biotin 5,000 mcg SUBLINGUAL DAILY 08/03/18 08/05/18 History cholecalciferol (vitamin D3) 2,000 unit PO DAILY 08/03/18 08/05/18 History [Vitamin D3] [id number]-algal oil 1 cap PO BID 08/03/18 08/05/18 History [Metanx (algal oil)] magnesium 400 mg PO DAILY 08/03/18 08/05/18 History metformin 750 mg PO BID 08/03/18 08/05/18 History [id number]-[id number]-FA-vit K 1 tab PO DAILY 08/03/18 08/05/18 History [Adults Multivitamin] omega-3 fatty [id number] 1 cap PO DAILY 08/03/18 08/05/18 History turmeric 600 mg PO BID 08/03/18 08/05/18 History Exam Vital signs: Vital Signs 08/08/18 20:00 08/09/18 00:00 08/09/18 04:00 Temperature 98.2 F 98.7 F 98.4 F Pulse Rate 79 69 73 Respiratory Rate 18 17 17 Blood Pressure 114/59 L 114/55 L 118/56 L Pulse Oximetry 96 96 96 08/09/18 08:00 08/09/18 12:00 Temperature 98.4 F 97.7 F Pulse Rate 72 81 Respiratory Rate 18 17 Blood Pressure 110/58 L 122/70 Pulse Oximetry 95 95 Intake & Output 08/08/18 08/09/18 08/09/18 18:59 06:59 18:59 Intake Total 3460 / 3460 Output Total 2350 / 2350 Balance 1110 / 1110 Intake: Oral 1960 / 1960 Anesthesia Amount 1500 / 1500 Output: Urine 2300 / 2300 Estimated Blood Loss 50 / 50 Other: # Voids 3 5 Date of Last Bowel Movement 08/05/18 08/08/18 08/08/18 - Constitutional mild distress - Routine HEENT Exam Head: Present: normocephalic - Routine Respiratory Exam Present: CTA bilaterally. Absent: accessory muscle use - Routine Cardiovascular Exam Present: RRR - Routine Abdominal Exam Present: soft, normoactive bowel sounds, distended. Absent: tenderness, guarding, firm - Routine Extremities Exam Present: full ROM. Absent: edema - Routine Skin Exam Present: dry, warm - Routine Neurological Exam Present: alert, oriented X3 - Routine Psychiatric Exam Present: normal affect, cooperative <Ervin,Aminata - Last Filed: 08/09/18 17:14> Vital signs: Vital Signs 08/08/18 20:00 08/09/18 00:00 08/09/18 04:00 Temperature 98.2 F 98.7 F 98.4 F Pulse Rate 79 69 73 Respiratory Rate 18 17 17 Blood Pressure 114/59 L 114/55 L 118/56 L Pulse Oximetry 96 96 96 08/09/18 08:00 08/09/18 12:00 Temperature 98.4 F 97.7 F Pulse Rate 72 81 Respiratory Rate 18 17 Blood Pressure 110/58 L 122/70 Pulse Oximetry 95 95 Intake & Output 08/08/18 08/09/18 08/09/18 18:59 06:59 18:59 Intake Total 3460 / 3460 Output Total 2350 / 2350 Balance 1110 / 1110 Intake: Oral 1960 / 1960 Anesthesia Amount 1500 / 1500 Output: Urine 2300 / 2300 Estimated Blood Loss 50 / 50 Other: # Voids 3 5 Date of Last Bowel Movement 08/05/18 08/08/18 08/08/18 <LuzAmmar - Last Filed: 08/09/18 18:10> Results - Labs CBC & Chem 7: 08/05/18 16:03 08/05/18 16:03 Labs: Laboratory Results - last 24 hr 08/08/18 08/09/18 21:12 13:10 POC Glucose 156 H 125 H <Aminata Ervin - Last Filed: 08/09/18 17:14> - Labs CBC & Chem 7: 08/05/18 16:03 08/05/18 16:03 Labs: Laboratory Results - last 24 hr 08/08/18 08/09/18 21:12 13:10 POC Glucose 156 H 125 H <Yosvany Escobar - Last Filed: 08/09/18 18:10> Assessment and Plan (1) Constipation Status: Acute Code(s): K59.00 - Constipation, unspecified - Plan This patient is a 68-year-old female who was admitted to [facility] on 08/05/2018 to undergo lumbar L2-3 transforaminal interbody fusion, L2 and L3 decompressive laminectomy, L2-3 pedicle screw fixation, L2-3 interbody cage placement, microsurgical technique. Procedures were done to relieve patient's paresthesias. 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 Patient currently on Gurdon 10 mg tablets 2 tabs p.o. every 4 as needed for pain , Gurdon 10 mg 1 tab p.o. every 4 hours for pain, morphine sulfate 4 mg IV every 4 hours as needed for severe pain. Our service has been consulted to manage patient's probable opioid induced constipation. On consultation patient reports last BM 4 days ago. She states normally her stools are soft and formed and brown without any noted bleeding. She takes a fiber supplement daily in order to have regular bowel movements. Patient states she has had a 2-3-day onset of lower abdominal cramping that she describes as constant. Denies any nausea or vomiting. She states her appetite has been poor since the onset of the lower abdominal cramping and constipation. She reports her last EGD/colonoscopy was done 4 years ago and per her recollection was unremarkable. Denies any known family history of gastrointestinal diseases or disorders. And denies any tobacco use, states EtOH use socially. Patient has had multiple laxatives administered without relief of constipation. Milk of magnesia, Dulcolax suppositories, lactulose, Janine-Colace, and Senokot. Constipation Most likely opioid induced constipation. PRN medications as noted above postoperatively. Relistor 12 mg subcu x1, GoLYTELY. KUB in the a.m. Plan -Clear liquid dinner -Resume cardiac diet in the morning -Relistor subcu x1 -GoLYTELY -KUB in the a.m. -Supportive care -Analgesics and antiemetics as per attending -Further recommendations to follow This patient has been seen by myself and Dr. Escobar and this note is written on his behalf - Attending Attestation Dr. Escobar <Aminata Ervin - Last Filed: 08/09/18 17:14> (1) Constipation Status: Acute Code(s): K59.00 - Constipation, unspecified - Attending Attestation Patient was seen and examined, agree with above note, patient most likely have constipation related to narcotics she just have surgery, patient has distended abdomen and very discomfort, she tried stool softeners and laxative which did not work she even tried enema this afternoon Recommendation for the patient to stop narcotics or reduce it as much as she can , we are going to give her 1 dose of Relistor to see if that would help, we will give GoLYTELY to try to evacuate her colon if symptoms does not get better then we might need to do a colonoscopy with disimpaction and decompression tube. Patient aware of the plan and she agree with that <Yosvany Escobar - Last Filed: 08/09/18 18:10>
--- NOTE | 2018-08-09 18:39 | XR ---
EXAM DATE: 08/09/2018 6:14 PM EDT AGE/SEX: 68 years / Female INDICATIONS: Constipation. CLINICAL DATA: This is the patient's initial encounter. Patient reports that signs and symptoms have been present for 4 - 6 days and indicates a pain score of 8/10. MEDICAL/SURGICAL HISTORY: Diabetes mellitus type II. Tonsillectomy. Lumbar fusion. COMPARISON: No prior exams available for comparison. FINDINGS: There is a diffuse ileus. Moderate constipation. Rotatory dextroscoliosis with left-sided pedicle scr ew and yanet fixation across L2-3 with disc spacer. No free air. CONCLUSION: Moderate right-sided and distal colonic and rectal constipation with ileus. Electronically signed by: Reji Rucker MD 08/09/2018 6:38 PM EDT
--- NOTE | 2018-08-10 06:53 | XR ---
EXAM DATE: 08/10/2018 6:45 AM EDT AGE/SEX: 68 years / Female INDICATIONS: Constipation and diffuse abdominal pain CLINICAL DATA: This is the patient's subsequent encounter. Patient reports that signs and symptoms h ave been present for 4 - 6 days and indicates a pain score of 10/10. MEDICAL/SURGICAL HISTORY: Diabetes. Tonsillectomy. lumbar fusion COMPARISON: [facility] [place], ABDOMEN 2V FLAT & UPRIGHT, 08/09/2018. . FINDINGS: Mild and fairly generalized distention of the small and large bowel present and slightly improved in the interim. The amount of stool in the colon also appears slightly decreased. No free air. CONCLUSION: Slightly improved ileus and stool burden. Electronically signed by: Dave Pina MD 08/10/2018 6:52 AM EDT
[2018-08-10] MEDS: Senna/Docusate Sodium 8.6/50 MG Tablet PO SCH (09:23)
[2018-08-10] MEDS: Magnesium Oxide 400 MG Tablet PO SCH (09:23)
[2018-08-10] MEDS: Insulin NovoLOG Aspart Correctional Sugar Inj SQ SCH ×3 (09:26→17:12)
[2018-08-10] MEDS ORDERED: Magnesium Citrate Liq 300 ML Bottle PO ONE (12:29)
[2018-08-10] MEDS ORDERED: Methylnaltrexone Inj 12 MG/0.6 ML Vial SQ ONE (13:51)
--- NOTE | 2018-08-10 13:58 | P.PNGI ---
Subjective Interval history: Patient sitting up in bed, spouse at bedside. Patient reports no BM after Relistor and GoLYTELY dose. Denies any nausea vomiting or abdominal pain. <Aminata Ervin - Last Filed: 08/10/18 13:52> Physical Exam Vital signs: Vital Signs 08/09/18 16:00 08/09/18 19:00 08/09/18 23:03 Temperature 98.0 F 99.1 F 99.2 F Pulse Rate 78 79 82 Respiratory Rate 18 18 18 Blood Pressure 138/87 118/75 115/58 L Pulse Oximetry 97 96 95 08/10/18 03:19 08/10/18 08:00 08/10/18 12:00 Temperature 98.7 F 98.3 F 97.7 F Pulse Rate 70 72 69 Respiratory Rate 18 16 16 Blood Pressure 112/72 124/65 142/77 H Pulse Oximetry 96 96 97 Intake & Output 08/09/18 08/10/18 08/10/18 18:59 06:59 18:59 Intake Total 0 / 0 Output Total 0 / 0 Balance 0 / 0 0 / 0 Weight 65.4 kg Intake: Oral 0 / 0 Output: Stool 0 / 0 Other: # Voids 6 4 Date of Last Bowel Movement 08/09/18 08/05/18 # Bowel Movements 0 - Constitutional no acute distress - Routine HEENT Exam Head: Present: normocephalic - Routine Respiratory Exam Present: CTA bilaterally. Absent: accessory muscle use - Routine Abdominal Exam Present: soft, normoactive bowel sounds. Absent: tenderness, guarding, firm - Routine Extremities Exam Present: full ROM. Absent: edema - Routine Skin Exam Present: dry, warm - Routine Neurological Exam Present: alert, oriented X3 - Urinary Catheter Management Indwelling Urethral Catheter Cath placed during this visit: no Reason for continuing: Hourly intake/output <Aminata Ervin - Last Filed: 08/10/18 13:52> Vital signs: Vital Signs 08/09/18 19:00 08/09/18 23:03 08/10/18 03:19 Temperature 99.1 F 99.2 F 98.7 F Pulse Rate 79 82 70 Respiratory Rate 18 18 18 Blood Pressure 118/75 115/58 L 112/72 Pulse Oximetry 96 95 96 08/10/18 08:00 08/10/18 12:00 08/10/18 15:57 Temperature 98.3 F 97.7 F 98.5 F Pulse Rate 72 69 83 Respiratory Rate 16 16 16 Blood Pressure 124/65 142/77 H 151/78 H Pulse Oximetry 96 97 100 Intake & Output 08/09/18 08/10/18 08/10/18 18:59 06:59 18:59 Intake Total 0 / 0 Output Total 0 / 0 Balance 0 / 0 0 / 0 Weight 65.4 kg Intake: Oral 0 / 0 Output: Stool 0 / 0 Other: # Voids 6 4 Date of Last Bowel Movement 08/09/18 08/05/18 08/05/18 # Bowel Movements 0 - Urinary Catheter Management Indwelling Urethral Catheter Cath placed during this visit: no <Yosvany Escobar - Last Filed: 08/10/18 17:03> Results - Labs CBC & Chem 7: 08/05/18 16:03 08/05/18 16:03 Laboratory Results - last 24 hr 08/09/18 08/10/18 08/10/18 23:56 08:06 12:11 POC Glucose 160 H 168 H 130 H - Imaging Impressions Abdomen X-Ray 08/09/18 00:00 CONCLUSION: Moderate right-sided and distal colonic and rectal constipation with ileus. Abdomen X-Ray 08/10/18 06:00 CONCLUSION: Slightly improved ileus and stool burden. <Aminata Ervin - Last Filed: 08/10/18 13:52> - Labs CBC & Chem 7: 08/05/18 16:03 08/05/18 16:03 Laboratory Results - last 24 hr 08/09/18 08/10/18 08/10/18 23:56 08:06 12:11 POC Glucose 160 H 168 H 130 H 08/10/18 16:38 POC Glucose 122 H - Imaging Impressions Abdomen X-Ray 08/09/18 00:00 CONCLUSION: Moderate right-sided and distal colonic and rectal constipation with ileus. Abdomen X-Ray 08/10/18 06:00 CONCLUSION: Slightly improved ileus and stool burden. <Yosvany Escobar - Last Filed: 08/10/18 17:03> Assessment and Plan (1) Constipation Status: Acute Code(s): K59.00 - Constipation, unspecified - Plan This patient is a 68-year-old female who was admitted to [facility] on 08/05/2018 to undergo lumbar L2-3 transforaminal interbody fusion, L2 and L3 decompressive laminectomy, L2-3 pedicle screw fixation, L2-3 interbody cage placement, microsurgical technique. Procedures were done to relieve patient's paresthesias. 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 Patient currently on [place] 10 mg tablets 2 tabs p.o. every 4 as needed for pain , [place] 10 mg 1 tab p.o. every 4 hours for pain, morphine sulfate 4 mg IV every 4 hours as needed for severe pain. Our service has been consulted to manage patient's probable opioid induced constipation. On consultation patient reports last BM 4 days ago. She states normally her stools are soft and formed and brown without any noted bleeding. She takes a fiber supplement daily in order to have regular bowel movements. Patient states she has had a 2-3-day onset of lower abdominal cramping that she describes as constant. Denies any nausea or vomiting. She states her appetite has been poor since the onset of the lower abdominal cramping and constipation. She reports her last EGD/colonoscopy was done 4 years ago and per her recollection was unremarkable. Denies any known family history of gastrointestinal diseases or disorders. And denies any tobacco use, states EtOH use socially. Patient has had multiple laxatives administered without relief of constipation. Milk of magnesia, Dulcolax suppositories, lactulose, Janine-Colace, and Senokot. Constipation Most likely opioid induced constipation. PRN medications as noted above postoperatively. Relistor 12 mg subcu x1, GoLYTELY. KUB in the a.m. 08/10/2018 Constipation No BM yet after administration of GoLYTELY and Relistor 12 mg subcu. Patient advised to continue GoLYTELY, additional Relistor dose ordered. KUB revealed the following findings: Mild and fairly generalized distention of the small and large bowel present and slightly improved in the interim. The amount of stool in the colon also appears slightly decreased. No free air. Slightly improved ileus and stool burden. Plan -N.p.o. -Relistor 12 mg subcu-dose #2 -GoLYTELY -Supportive care -Encourage patient to continue ambulation -Further recommendations to follow This patient has been seen by myself and Dr. Escobar and this note is written on his behalf - Attending Attestation Dr. Escobar <Aminata Ervin - Last Filed: 08/10/18 13:52> (1) Constipation Status: Acute Code(s): K59.00 - Constipation, unspecified - Plan Patient was seen and examined, her abdomen is less distended, a little bit less discomfort, KUB showed less air but still did not have good effect from the Relistor or the GoLYTELY, we will give her a second dose in the remaining of the , we will keep monitoring for bowel movements <Yosvany Escobar - Last Filed: 08/10/18 17:03>
--- NOTE | 2018-08-10 17:05 | P.PNNS ---
Subjective Interval history: Pt seen and examined this morning. She has low back discomfort but states biggest complaint is persistent constipation and overall discomfort from this. No n/v. She is ambulating halls well. No radiculopathy in LEs. <Fantasma Zimmerman - Last Filed: 08/10/18 17:01> Physical Exam Vital signs: Vital Signs 08/09/18 19:00 08/09/18 23:03 08/10/18 03:19 Temperature 99.1 F 99.2 F 98.7 F Pulse Rate 79 82 70 Respiratory Rate 18 18 18 Blood Pressure 118/75 115/58 L 112/72 Pulse Oximetry 96 95 96 08/10/18 08:00 08/10/18 12:00 08/10/18 15:57 Temperature 98.3 F 97.7 F 98.5 F Pulse Rate 72 69 83 Respiratory Rate 16 16 16 Blood Pressure 124/65 142/77 H 151/78 H Pulse Oximetry 96 97 100 Intake & Output 08/09/18 08/10/18 08/10/18 18:59 06:59 18:59 Intake Total 0 / 0 Output Total 0 / 0 Balance 0 / 0 0 / 0 Weight 65.4 kg Intake: Oral 0 / 0 Output: Stool 0 / 0 Other: # Voids 6 4 Date of Last Bowel Movement 08/09/18 08/05/18 08/05/18 # Bowel Movements 0 - Constitutional no acute distress - Routine HEENT Exam Head: Present: normocephalic Eye: Present: PERRL - Routine Respiratory Exam Present: CTA bilaterally. Absent: respiratory distress, rhonchi, wheezes - Routine Cardiovascular Exam Present: RRR, S1, S2. Absent: murmur - Routine Abdominal Exam Present: tenderness (mild.), distended. Absent: normoactive bowel sounds ( diminished but present.) - Routine Skin Exam Absent: cyanosis, erythema - Routine Neurological Exam Present: alert, oriented X3, moving all extremities (ambulating with rolling walker.). Absent: motor deficit - Routine Psychiatric Exam Present: cooperative. Absent: anxious, agitated - Urinary Catheter Management Indwelling Urethral Catheter Cath placed during this visit: no Reason for continuing: Hourly intake/output <Fantasma Zimmerman - Last Filed: 08/10/18 17:01> Vital signs: Vital Signs 08/09/18 19:00 08/09/18 23:03 08/10/18 03:19 Temperature 99.1 F 99.2 F 98.7 F Pulse Rate 79 82 70 Respiratory Rate 18 18 18 Blood Pressure 118/75 115/58 L 112/72 Pulse Oximetry 96 95 96 08/10/18 08:00 08/10/18 12:00 08/10/18 15:57 Temperature 98.3 F 97.7 F 98.5 F Pulse Rate 72 69 83 Respiratory Rate 16 16 16 Blood Pressure 124/65 142/77 H 151/78 H Pulse Oximetry 96 97 100 Intake & Output 08/09/18 08/10/18 08/10/18 18:59 06:59 18:59 Intake Total 0 / 0 Output Total 0 / 0 Balance 0 / 0 0 / 0 Weight 65.4 kg Intake: Oral 0 / 0 Output: Stool 0 / 0 Other: # Voids 6 4 Date of Last Bowel Movement 08/09/18 08/05/18 08/05/18 # Bowel Movements 0 - Urinary Catheter Management Indwelling Urethral Catheter Cath placed during this visit: no <Shamar Grant - Last Filed: 08/10/18 17:20> Assessment and Plan - Assessment (1) Chronic low back pain with bilateral sciatica Code(s): M54.41 - Lumbago with sciatica, right side; M54.42 - Lumbago with sciatica, left side; G89.29 - Other chronic pain Status: Chronic (2) Lumbar stenosis with neurogenic claudication Code(s): M48.062 - Spinal stenosis, lumbar region with neurogenic claudication Status: Chronic (3) Lumbar degenerative disc disease Code(s): M51.36 - Other intervertebral disc degeneration, lumbar region Status : Chronic (4) Lumbar facet arthropathy Code(s): M47.816 - Spondylosis without myelopathy or radiculopathy, lumbar region Status: Chronic (5) Spondylolisthesis, lumbar region Code(s): M43.16 - Spondylolisthesis, lumbar region Status: Chronic - Plan A: 68 y/o FM s/p Lumbar L2-3 transforaminal interbody fusion; L2 and L3 decompressive laminectomy; L2-3 pedicle screw fixation; L2-3 interbody cage placement; microsurgical technique P: Continue with pain control with as least amount of pain medication as she can and attempt at BM. Continue to ambulate Will need a walker and home health care on d/c Appreciate GI assistance. <Fantasma Zimmerman - Last Filed: 08/10/18 17:01> - Attending Attestation The exam, history, and the medical decision-making described in the above note were completed with the assistance of the mid-level provider. I reviewed and agree with the findings presented. I attest that I had a [id number] encounter with the patient on the same day, and personally performed and documented my assessment and findings in the medical record. <Shamar Grant - Last Filed: 08/10/18 17:20>
[2018-08-10] MEDS ORDERED: Sod Phosphate/Sod Biphosphate (Adult) Enema 133 ML Bottle RECTAL ONE (17:38)
[2018-08-11] MEDS: Insulin NovoLOG Aspart Correctional Sugar Inj SQ SCH ×2 (08:30→10:48)
[2018-08-11] MEDS: Senna/Docusate Sodium 8.6/50 MG Tablet PO SCH ×2 (08:30→10:46)
--- NOTE | 2018-08-11 10:38 | P.PNNS ---
Subjective Interval history: Pt awake and alert. Sitting up in chair. She has had multiple bms starting yesterday afternoon. No rectal bleeding. She states she essentially is not taking any pain medication and is doing well. No radiculopathy in LEs. Tingling in feet has resolved. Chronic numbness in feet stable. Physical Exam Vital signs: Vital Signs 08/10/18 12:00 08/10/18 15:57 08/10/18 20:00 Temperature 97.7 F 98.5 F 98.2 F Pulse Rate 69 83 77 Respiratory Rate 16 16 17 Blood Pressure 142/77 H 151/78 H 139/72 Pulse Oximetry 97 100 100 08/11/18 00:00 08/11/18 04:00 Temperature 98.3 F 98.6 F Pulse Rate 83 80 Respiratory Rate 16 16 Blood Pressure 145/60 H 136/60 Pulse Oximetry 95 98 Intake & Output 08/10/18 08/11/18 08/11/18 18:59 06:59 18:59 Intake Total 0 / 0 Balance 0 / 0 Weight 65.5 kg Intake: Oral 0 / 0 Other: # Voids 6 7 Date of Last Bowel Movement 08/05/18 08/11/18 # Bowel Movements 1 1 - Constitutional no acute distress, cooperative - Routine HEENT Exam Head: Present: normocephalic Eye: Absent: conjunctival icterus - Routine Respiratory Exam Present: CTA bilaterally. Absent: respiratory distress, rhonchi, wheezes - Routine Cardiovascular Exam Present: RRR, S1, S2. Absent: murmur - Routine Abdominal Exam Present: soft, normoactive bowel sounds. Absent: distended - Routine Skin Exam Present: cyanosis, erythema - Routine Neurological Exam Present: alert, moving all extremities, normal speech. Absent: sensory deficit , motor deficit - Routine Psychiatric Exam Present: normal affect, cooperative. Absent: anxious, agitated - Urinary Catheter Management Indwelling Urethral Catheter Cath placed during this visit: no Reason for continuing: Hourly intake/output Assessment and Plan - Assessment (1) Chronic low back pain with bilateral sciatica Code(s): M54.41 - Lumbago with sciatica, right side; M54.42 - Lumbago with sciatica, left side; G89.29 - Other chronic pain Status: Chronic (2) Lumbar stenosis with neurogenic claudication Code(s): M48.062 - Spinal stenosis, lumbar region with neurogenic claudication Status: Chronic (3) Lumbar degenerative disc disease Code(s): M51.36 - Other intervertebral disc degeneration, lumbar region Status : Chronic (4) Lumbar facet arthropathy Code(s): M47.816 - Spondylosis without myelopathy or radiculopathy, lumbar region Status: Chronic (5) Spondylolisthesis, lumbar region Code(s): M43.16 - Spondylolisthesis, lumbar region Status: Chronic - Plan A: 68 y/o FM s/p Lumbar L2-3 transforaminal interbody fusion; L2 and L3 decompressive laminectomy; L2-3 pedicle screw fixation; L2-3 interbody cage placement; microsurgical technique P: Discharge pt home. Continue to ambulate Discussed restrictions with pt.
[2018-08-11] MEDS: Magnesium Oxide 400 MG Tablet PO SCH (10:47)
--- NOTE | 2018-08-11 11:21 | P.PNGI ---
Subjective Interval history: Sitting up in the chair feeling much better, notes normal formed stools multiple times this a.m. and now constipation appears to be relieved Physical Exam Vital signs: Vital Signs 08/10/18 12:00 08/10/18 15:57 08/10/18 20:00 Temperature 97.7 F 98.5 F 98.2 F Pulse Rate 69 83 77 Respiratory Rate 16 16 17 Blood Pressure 142/77 H 151/78 H 139/72 Pulse Oximetry 97 100 100 08/11/18 00:00 08/11/18 04:00 08/11/18 08:00 Temperature 98.3 F 98.6 F 97.6 F Pulse Rate 83 80 76 Respiratory Rate 16 16 16 Blood Pressure 145/60 H 136/60 131/57 L Pulse Oximetry 95 98 100 Intake & Output 08/10/18 08/11/18 08/11/18 18:59 06:59 18:59 Intake Total 0 / 0 Balance 0 / 0 Weight 65.5 kg Intake: Oral 0 / 0 Other: # Voids 6 7 Date of Last Bowel Movement 08/05/18 08/11/18 # Bowel Movements 1 1 - Constitutional mild distress, cooperative - Routine HEENT Exam ENT: Present: mucous membranes moist - Routine Neck Exam Present: supple - Routine Respiratory Exam Present: accessory muscle use (No shortness of breath) - Routine Abdominal Exam Present: soft, normoactive bowel sounds (Flat,) - Urinary Catheter Management Indwelling Urethral Catheter Cath placed during this visit: no Reason for continuing: Hourly intake/output Results - Labs CBC & Chem 7: 08/05/18 16:03 08/05/18 16:03 Laboratory Results - last 24 hr 08/10/18 08/10/18 08/10/18 12:11 16:38 22:22 POC Glucose 130 H 122 H 110 08/11/18 08:53 POC Glucose 125 H Assessment and Plan (1) Constipation Status: Acute Code(s): K59.00 - Constipation, unspecified - Plan Constipation now resolved after second dose of Relistor and GoLYTELY also given since admission. Patient's had multiple formed large bowel movements this a.m. and states that her constipation is resolved. No abdominal pain no nausea no vomiting tolerating diet. Current hemoglobin 13.2 labs reviewed Probable constipation due to anesthesia and pain meds during hospital stay. Patient states that she usually takes dose of fiber at home and has no issues She also notes no pain meds for the past 2 days and is feeling much better Encourage patient to have bowel regimen daily with fiber and MiraLAX if needed at home. Monitor especially when first returning home until she is back to her normal ADLs for bowel movement at least every 3 days. Supportive care given GI will sign off Patient was seen per myself and Dr. Escobar, note was written on his behalf
== END 2018-08-11 12:19 | disposition home health service (06) ==
LOC: HSDI 05:37 → N06 14:25
PROVIDERS: ADMIT Neurological Surgery; ATTEND Neurological Surgery